=== PATIENT | male | born 1940 | race Caucasian/White ===

== ENCOUNTER 2017-02-03 08:03 | Emergency (ER) | payer MEDICARE, OTHER ==
[~2017-02-03] VITALS: Ht 177.8 cm; Wt 78.0 kg
[2017-02-03 08:07] VITALS: BP 211/101; PULSE 59; RESP 18; TEMP 98; O2SAT 99
[2017-02-03] MEDS ORDERED: SIMV20TA PO (08:20)
[2017-02-03] MEDS ORDERED: ATEN25TA PO (08:20)
[2017-02-03] MEDS ORDERED: LISI-515 PO (08:20)
[2017-02-03] MEDS ORDERED: METF500T PO (08:20)
[2017-02-03 08:37] VITALS: O2SAT 97
--- NOTE | 2017-02-03 08:38 | PD ---
HPI Chief Complaint: Cardiac Complaint Time Seen by Provider: 08:33 Travel History International Travel<30 days: No Contact w/Intl Traveler<30days: No Traveled to known affect area: No History of Present Illness HPI 76-year-old male with history of hypertension, diabetes, recent diagnosis of bladder cancer, presents to the ER today because he states that he woke up this morning, took his blood pressure medication including metoprolol and lisinopril at 4:30 AM, took his blood pressure which was 130/80 this morning and noticed that his heart rate was in the 30s and 40s. He states that at one point he did have some dizziness lasting for about 10 minutes but it went away and his heart rate went up to the 60s. He denies any chest pains, shortness of breath, or any other symptoms. Modifying Factors: None Associated Signs & Symptoms: Slow heart rate, palpitations Risk Factors: Taking metoprolol PFSH Past Medical History Cancer: Yes (BLADDER) Cardiovascular Problems: Yes High Cholesterol: Yes Diabetes: Yes Patient Takes Glucophage: Yes Hypertension: Yes Influenza Vaccination: No ?: Not Past Surgical History Abdominal Surgery: Yes (HERNIORRHAPHIES) Genitourinary Surgery: Yes (BLADDER TUMOR) Social History Alcohol Use: Yes (1 DRINK DAILY) Tobacco Use: Yes (RARE CIGAR) Substance Use: No Allergies-Medications (Allergen,Severity, Reaction): Coded Allergies: No Known Allergies (Unverified , 02/03/17) Reported Meds & Prescriptions Reported Meds & Active Scripts Active Reported Lisinopril 20 Mg Tab 20 Mg PO DAILY Simvastatin 20 Mg Tab 20 Mg PO DAILY Atenolol 25 Mg Tab 25 Mg PO DAILY Metformin (Metformin HCl) 500 Mg Tab 500 Mg PO DAILY With a meal Review of Systems Except as stated in HPI: all other systems reviewed are Neg Physical Exam Narrative GENERAL: Well-developed pleasant elderly white male patient currently in no acute distress. Awake and oriented 3. SKIN: Focused skin assessment warm/dry. HEAD: Atraumatic. Normocephalic. EYES: Pupils equal and round. No scleral icterus. No injection or drainage. ENT: No nasal bleeding or discharge. Mucous membranes pink and moist. NECK: Trachea midline. No JVD. CARDIOVASCULAR: Regular rate and rhythm. No murmur appreciated. RESPIRATORY: No accessory muscle use. Clear to auscultation. Breath sounds equal bilaterally. GASTROINTESTINAL: Abdomen soft, non-tender, nondistended. Hepatic and splenic margins not palpable. MUSCULOSKELETAL: No obvious deformities. No clubbing. No cyanosis. No edema. NEUROLOGICAL: Awake and alert. No obvious cranial nerve deficits. Motor grossly within normal limits. Normal speech. PSYCHIATRIC: Appropriate mood and affect; insight and judgment normal. Data Data Last Documented VS Vital Signs Date Time Temp Pulse Resp B/P Pulse Ox O2 Delivery O2 Flow Rate FiO2 02/03/17 08:49 68 18 168/86 100 Room Air 02/03/17 08:07 98.0 Orders Complete Blood Count With Diff (02/03/17 08:33) Comprehensive Metabolic Panel (02/03/17 08:33) Troponin I (02/03/17 08:33) Chest, Single Ap (02/03/17 08:33) Ecg Monitoring (02/03/17 08:33) Iv Access Insert/Monitor (02/03/17 08:33) Oximetry (02/03/17 08:33) Sodium Chloride 0.9% Flush (Ns Flush) (02/03/17 08:45) Lorazepam Inj (Ativan Inj) (02/03/17 08:45) Sodium Chlorid 0.9% 500 Ml Inj (Ns 500 M (02/03/17 09:15) Labs Laboratory Tests Test 02/03/17 08:30 White Blood Count 6.2 TH/MM3 Red Blood Count 4.10 MIL/MM3 Hemoglobin 13.2 GM/DL Hematocrit 38.8 % Mean Corpuscular Volume 94.6 FL Mean Corpuscular Hemoglobin 32.2 PG Mean Corpuscular Hemoglobin 34.0 % Concent Red Cell Distribution Width 11.3 % Platelet Count 245 TH/MM3 Mean Platelet Volume 8.2 FL Neutrophils (%) (Auto) 58.9 % Lymphocytes (%) (Auto) 26.6 % Monocytes (%) (Auto) 12.8 % Eosinophils (%) (Auto) 0.7 % Basophils (%) (Auto) 1.0 % Neutrophils # (Auto) 3.7 TH/MM3 Lymphocytes # (Auto) 1.6 TH/MM3 Monocytes # (Auto) 0.8 TH/MM3 Eosinophils # (Auto) 0.0 TH/MM3 Basophils # (Auto) 0.1 TH/MM3 CBC Comment DIFF FINAL Differential Comment Sodium Level 129 MEQ/L Potassium Level 4.1 MEQ/L Chloride Level 96 MEQ/L Carbon Dioxide Level 26.4 MEQ/L Anion Gap 7 MEQ/L Blood Urea Nitrogen 15 MG/DL Creatinine 0.86 MG/DL Estimat Glomerular Filtration 87 ML/MIN Rate Random Glucose 117 MG/DL Calcium Level 9.1 MG/DL Total Bilirubin 0.9 MG/DL Aspartate Amino Transf 32 U/L (AST/SGOT) Alanine Aminotransferase 26 U/L (ALT/SGPT) Alkaline Phosphatase 83 U/L Troponin I LESS THAN 0.02 NG/ML Total Protein 7.8 GM/DL Albumin 4.3 GM/DL MDM Medical Decision Making Medical Screen Exam Complete: Yes Emergency Medical Condition: Yes Medical Record Reviewed: Yes Interpretation(s) EKG shows normal sinus rhythm at a rate of 69 bpm with occasional PVCs. Laboratory Tests Test 02/03/17 08:30 Red Blood Count 4.10 MIL/MM3 (4.50-5.90) Hematocrit 38.8 % (39.0-51.0) Red Cell Distribution Width 11.3 % (11.6-17.2) Monocytes (%) (Auto) 12.8 % (0.0-8.0) Sodium Level 129 MEQ/L (136-145) Chloride Level 96 MEQ/L (98-107) Estimat Glomerular Filtration 87 ML/MIN (>89) Rate Random Glucose 117 MG/DL (74-106) Troponin I LESS THAN 0.02 NG/ML (0.02-0.05) Last 24 hours Impressions Chest X-Ray 02/03/17 0833 Signed Impressions: Service Date/Time: Friday, February 03, 2017 08:48 - CONCLUSION: No acute disease. Ke Spivey MD Differential Diagnosis Palpitations, bradycardiamedication side effects versus electrolyte abnormalities versus dysrhythmias Narrative Course Lab work shows hyponatremia and hypochloremia which the patient states has been noted as well by his oncologist several weeks ago. At this point, I do not think that this is acute. Patient is otherwise asymptomatic in the ER. His heart rate has remained in the 60s and 70s. He does have occasional PVCs and I' m not sure whether this is what he is seeing on his heart rate machine. At this point, I would hold the metoprolol which is suspect could be exacerbating the issue. He was given a as related in the ER and his blood pressure came down nicely. I suspect that the blood pressure elevation may be secondary to some anxiety on his part. At this point, my plan would be to release the patient with close follow-up to primary care physician. Return for any further issues or new symptoms as needed. The plan was discussed with him and he states understanding. Of note, patient had several PVCs on telemetry while I was talking to him, and he was asymptomatic. He states he does not even notice them. Diagnosis Primary Impression: Frequent PVCs Med/Other Pt SpecificInfo: Med Stopped (hold beta pam) Disposition: 01 DISCHARGE HOME Condition: Stable Judson Waldrop MD Feb 03, 2017 08:38
[2017-02-03] MEDS ORDERED: SODIUM CHLORIDE 0.9% FLUSH 10 ML FLUSH IVF PRN (08:45)
[2017-02-03] MEDS ORDERED: LORazepam 2 MG/ML VIAL IV PUSH ONE (08:45)
[2017-02-03 08:47] LABS: AUTOMATED NEUTROPHIL # 3.7 TH/MM3 (1.8-7.7); BASOPHIL # 0.1 TH/MM3 (0-0.2); EOSINOPHIL % 0.7 % (0.0-4.0); HEMATOCRIT 38.8 % (39.0-51.0); HEMO FLAGS DIFF FINAL; LYMPH % 26.6 % (9.0-44.0); LYMPHOCYTE # 1.6 TH/MM3 (1.0-4.8); MEAN CELL VOLUME 94.6 FL (80.0-100.0); MEAN CORPUSCULAR HEMOGLOBIN 32.2 PG (27.0-34.0); MONO % 12.8 % (0.0-8.0); NEUT % 58.9 % (16.0-70.0); PLATELET COUNT 245 TH/MM3 (150-450); RED CELL DISTRIBUTION WIDTH 11.3 % (11.6-17.2); WHITE BLOOD COUNT 6.2 TH/MM3 (4.0-11.0)
[2017-02-03 08:49] VITALS: BP 168/86; PULSE 68; RESP 18; O2SAT 100
[2017-02-03 08:53] LABS: CHLORIDE 96 MEQ/L (98-107); POTASSIUM 4.1 MEQ/L (3.5-5.1); SODIUM (NA) 129 MEQ/L (136-145)
[2017-02-03 08:57] LABS: ANION GAP 7 MEQ/L (5-15); BICARBONATE 26.4 MEQ/L (21.0-32.0); BLOOD UREA NITROGEN 15 MG/DL (7-18)
[2017-02-03 09:00] LABS: ALT (GPT) 26 U/L (12-78); AST (GOT) 32 U/L (15-37); GLOMERULAR FILTRATION RATE 87 ML/MIN (>89)
[2017-02-03 09:02] LABS: TOTAL BILIRUBIN ADULT 0.9 MG/DL (0.2-1.0)
[2017-02-03 09:03] LABS: ALKALINE PHOSPHATASE 83 U/L (45-117)
--- NOTE | 2017-02-03 09:14 | RADRPT ---
EXAM DATE/TIME: 02/03/2017 08:48 [facility] COMPARISON: No previous studies available for comparison. INDICATIONS : Chest discomfort. MEDICAL HISTORY : None. SURGICAL HISTORY : None. ENCOUNTER: Initial ACUITY: 1 day PAIN SCORE: 7/10 LOCATION: Bilateral chest FINDINGS: A single view of the chest demonstrates the lungs to be symmetrically aerated without evidence of mas s, infiltrate or effusion. The cardiomediastinal contours are unremarkable. Osseous structures are intact. There are multiple overlying electrocardiogram leads. CONCLUSION: No acute disease. Ke Spivey MD on February 03, 2017 at 9:12 Board Certified Radiologist. This report was verified electronically.
[2017-02-03] MEDS ORDERED: SODIUM CHLORID 0.9% 500 ML INJ 500 ML IV ONE (09:15)
--- NOTE | 2017-02-03 17:05 | EKG ---
Date Performed: 02/03/2017 Time Performed: 08:16:41 PTAGE: 76 years EKG: Sinus rhythm WITH OCCASIONAL VENTRICULAR PREMATURE COMPLEXES INDETERMINATE AXIS RIGHT BUNDLE BRANCH BLOCK ABNORMA L ECG NO PREVIOUS TRACING DOCTOR: Ayan Doherty Interpretating Date/Time 02/03/2017 17:03:48
== END 2017-02-03 09:42 | disposition home or self-care (01) ==
LOC: PHED 08:03
DX: I49.3 Ventricular premature depolarization (principal); C67.9 Malignant neoplasm of bladder, unspecified; I10 Essential (primary) hypertension; Z72.0 Tobacco use; Z79.899 Other long term (current) drug therapy
CPT/HCPCS: 71010; 80053; 84484; 85025; 93005; 96374; 99285; J2060; J7040

== ENCOUNTER → 2017-02-13 | Day surgery (SDC) | payer MEDICARE, OTHER ==
[~2017-02-13] MED LIST: ATEN25TA PO; GENTAMICIN SULFATE 80 MG/2 ML VIAL ONE; LISI-515 PO; METF500T PO; SIMV20TA PO
== END | disposition home or self-care (01) ==
LOC: ESDC 08:58
PROVIDERS: ATTEND Urology
DX: C67.3 Malignant neoplasm of anterior wall of bladder (principal); Z53.09 Procedure and treatment not carried out because of other contraindication; I10 Essential (primary) hypertension; I49.3 Ventricular premature depolarization
CPT/HCPCS: 93005; G0463; J1580; 99211